=== PATIENT | female | born 1940 | race Caucasian/White ===

== ENCOUNTER 2016-06-19 07:05 | Observation (INO) | payer MEDICARE, OTHER ==
[~2016-06-19] VITALS: Ht 152.4 cm; Wt 80.8 kg
[~2016-06-19 07:05] MED LIST: LASIX DPS20 MG PO; MIRALAX PACKET17 GM PO; PERCOCET 5 DPS1 TAB PO; TENORMIN-DPS25 MG PO; VITAMIN D2000 UNI1 PO; VITAMIN D2000 UNIT; ZESTRIL DPS20 MG PO
[2016-06-23] MEDS ORDERED: SENOKOT S1 TAB PO (10:44)
[2016-06-23] MEDS ORDERED: NORCO 5-325 TA1 EACH PO (10:45)
--- NOTE | 2016-06-28 10:23 | OR ---
ADMIT: 06/19/2016 RM/LOC: [facility] MR#: [id number] [address] [facility] [address] [place], [place] [id number] [address] [place] [address] Operative/Delivery Room Report SEX: F AGE: 76 : 1940 SURGERY DATE: 06/19/2016 SURGEON: Warren Swartz MD PRE-PROCEDURE DIAGNOSIS: Symptomatic enlarging lower abdominal incisional hernia. POSTPROCEDURE DIAGNOSIS: Symptomatic enlarging lower abdominal incisional hernia x2. PROCEDURE: Laparoscopic incisional hernia repair with 10 x [address] mesh using Echo positioning system. INDICATIONS: The patient is a 76-year-old, who had a recent lower abdominal midline incision for some type of pelvic benign mass and developed an early incisional hernia, it has gotten larger, who presents for repair. DESCRIPTION OF PROCEDURE: The patient was taken to the operating room. General endotracheal anesthesia was induced. The patient's abdomen was prepped and draped in normal sterile fashion. The case was begun by making a transverse mid upper abdominal 5 mm skin incision using #11 blade. A retractable 5 mm port was placed within the abdomen. The abdomen was insufflated with CO2 to an intra-abdominal pressure of 15 mmHg. A camera was placed showing no bowel or vascular injury. There were a couple small omental adhesions to the undersurface of the anterior abdominal wall that was noted. I placed two 5 mm right-sided abdominal ports under direct vision, one in the right upper, one in the right lower abdominal quadrants. Using Endo Shear dissection, I took down the omental adhesions. I took a picture of two incisional abdominal wall hernias. There was also some weakness around the remainder of the incision, so I elected to cover both the hernia sites and the entirety of the incision with a 10 x [address] mesh using the Echo positioning system. I placed quadrant 0 Ethibond sutures in each quadrant of our mesh and then, I made an incision over the largest of the incisional hernia defects. I found the hernia sac, made a small incision in the hernia sac and introduced the mesh with the Echo positioning system on it and the pre-placed quadrant Ethibond sutures into the intra-abdominal space, obtained pneumoperitoneum using Catherine clamp, clamping the hernia sac. I then insufflated the Echo positioning system and placed the mesh over the previously placed incision and hernia sites with at least a 5 cm overlap on all edges of the hernias and previous incision site. I then made small stab wounds in the abdomen at four quadrants using a #11 blade. I placed an EndoCatch into the abdomen and grabbed each limb of our pre-placed quadrant sutures and after insufflating the Echo positioning system as well as placing these four quadrant sutures, I had an excellent mesh overlap with no buckling of our mesh. I was able to put the pressure to about 7 mmHg prior to tacking the sutures just to make sure that we had an adequately paced mesh. I then ADMIT: 06/19/2016 RM/LOC: [facility] MR#: [id number] [id number] [place] [id number] [facility] [address] [place] [id number] Operative/Delivery Room Report SEX: F AGE: 76 : 1940 tied down these sutures, removed the Echo positioning system and using a secure strap dissolvable tacker, I tacked the edges of the mesh circumferentially and the inner portion of the mesh to the undersurface of the anterior abdominal wall to reinforce our closure, took several post-placement pictures. I injected 0.5% Marcaine subdermally, subfascially for postoperative analgesia. Desufflated the intra-abdominal space, removed all three of our 5 mm ports. I then elected to remove the hernia sac at the mesh insertion site at that hernia with electrocautery and then closed the fascia at this insertion site with a running 0 Ethibond suture. I closed all skin sites with interrupted 4-0 Vicryl subcuticular skin stitches. Wounds were cleaned, dried, and dressed. The patient tolerated the procedure without difficulty, was extubated ,and wheeled to recovery room in good condition. Warren Swartz MD/ soren JOB #: [id number] CC: Warren Swartz, Attending Physician Hannah Arriaga, Family Physician
--- NOTE | 2016-08-05 08:51 | DS ---
ADMIT: 06/19/2016 RM/LOC: [address] [facility] MR#: [id number] [address] [facility] [address] [place], [place] [id number] [address] [place] [address] Discharge Summary SEX: F AGE: 76 : 1940 ADMISSION DATE: 06/19/2016 DISCHARGE DATE: 06/21/2016 ADMITTING DIAGNOSIS: Symptomatic enlarging lower abdominal incisional hernia. DISMISSAL DIAGNOSES: 1. Lower abdominal incisional hernia x2. 2. Previous cyst removal. 3. Previous tonsillectomy. 4. Hypertension. PROCEDURES: Laparoscopic incisional hernia repair with 10 x [address] Mesh with Echo Positioning System. HOSPITAL COURSE: The patient was an inpatient admit with routine med/surg orders. She was given morphine IV push for pain control and was given a diet as tolerated. Overall, the patient recovered well while in the hospital. She transferred to the floor without any complications. She was up ambulating, tolerating advanced diet, and had normal bowel function. Vitals and laboratory data remained stable throughout the hospital course. She continued to feel well, and she was able to discharge to home on 06/21/2016. DISCHARGE INSTRUCTIONS: 1. Follow up in 7-10 days. 2. Dressings off Friday. DISCHARGE MEDICATION LIST: 1. Atenolol 25 mg daily. 2. Senna 8.6 x50 mg daily p.r.n. 3. Vitamin D3 2000 units daily. 4. Furosemide 20 mg daily. 5. Lisinopril 20 mg 1/2 tab daily. 6. Longview 5/325 mg 1-2 tabs q.4-6 hours p.r.n. KIRAN Kumar / Warren Swartz MD / yoselyn JOB #: [id number] CC: Warren Swartz MD, Attending Physician Hannah Arriaga MD, Family Physician
== END 2016-06-21 13:35 | disposition home or self-care (01) ==
LOC: SSS 07:05 → 6PED 11:52 → SSS 16:56 → 6PED 06-21 13:35
PROVIDERS: ADMIT Surgery
PROC: 0WUF4JZ Supplement Abdominal Wall with Synthetic Substitute, Percutaneous Endoscopic Approach (ICD-10-PCS; principal; 2016-06-19)
DX: K43.2 Incisional hernia without obstruction or gangrene (principal); I10 Essential (primary) hypertension; K59.00 Constipation, unspecified; M19.90 Unspecified osteoarthritis, unspecified site; Z79.899 Other long term (current) drug therapy; Z98.890 Other specified postprocedural states